=== PATIENT | female | born 1975 | race Caucasian/White ===

== ENCOUNTER 2017-12-09 20:21 | Emergency (ER) | payer BC ==
[~2017-12-09] VITALS: Ht 162.6 cm; Wt 62.0 kg
[2017-12-09] MEDS ORDERED: IOHEXOL 350 MG/ML 10 ML VIAL (for RAD DIAG) IVCONTRAST ONE (20:22)
[2017-12-09 20:24] VITALS: BP 119/69; PULSE 80; RESP 18; TEMP 99.2; O2SAT 96
[2017-12-09] MEDS ORDERED: THYR1TAB PO (21:23)
[2017-12-09 21:24] VITALS: BP 120/68; PULSE 80; RESP 18; TEMP 99.2; O2SAT 97
[2017-12-09] MEDS ORDERED: SODIUM CHLORIDE 0.9% FLUSH 10 ML FLUSH IV FLUSH PRN (21:45)
[2017-12-09 22:00] VITALS: O2SAT 99
[2017-12-09] MEDS ORDERED: ONDANSETRON HCL 4 MG/2 ML VIAL IV PUSH ONE (22:00)
[2017-12-09] MEDS ORDERED: MORPHINE SULFATE 2 MG/ML INJ IV PUSH ONE (22:00)
[2017-12-09] MEDS ORDERED: SODIUM CHLOR 0.9% 1000 ML INJ 1,000 ML IV ONE (22:00)
--- NOTE | 2017-12-09 22:10 | PD ---
HPI Chief Complaint: Flank/Kidney Pain Time Seen by Provider: 21:58 Travel History International Travel<30 days: No Contact w/Intl Traveler<30days: No Traveled to known affect area: No History of Present Illness HPI 42-year-old female patient presents to the ER today for 2 days history of right upper quadrant abdominal pains which she currently measures an 8 out of 10, nausea, worsened after she ate today. She denies any fevers, diarrhea, urinary symptoms, or any other symptoms. Modifying Factors: Worse with eating Associated Signs & Symptoms: Right upper quadrant abdominal pain with nausea Risk Factors: None PFSH Past Medical History Diminished Hearing: No Thyroid Disease: Yes Tetanus Vaccination: Unknown Influenza Vaccination: No ?: Not LMP: hyst Past Surgical History Hysterectomy: Yes Tonsillectomy: Yes Social History Alcohol Use: No Tobacco Use: No Substance Use: No Allergies-Medications (Allergen,Severity, Reaction): Coded Allergies: acetaminophen (Verified Allergy, Intermediate, Hallucinations, 12/09/17) propoxyphene (Verified Allergy, Intermediate, Hallucinations, 12/09/17) Reported Meds & Prescriptions Reported Meds & Active Scripts Active Reported Wp Thyroid (Thyroid) 81.25 Mg Tab 81.25 Mg PO DAILY Review of Systems Except as stated in HPI: all other systems reviewed are Neg Physical Exam Narrative GENERAL: Well-developed middle-age female patient currently in mild distress. Awake and oriented 3. SKIN: Focused skin assessment warm/dry. HEAD: Atraumatic. Normocephalic. EYES: Pupils equal and round. No scleral icterus. No injection or drainage. ENT: No nasal bleeding or discharge. Mucous membranes pink and moist. NECK: Trachea midline. No JVD. CARDIOVASCULAR: Regular rate and rhythm. No murmur appreciated. RESPIRATORY: No accessory muscle use. Clear to auscultation. Breath sounds equal bilaterally. GASTROINTESTINAL: Abdomen soft, Right upper quadrant tenderness without guarding or rebound, nondistended. Hepatic and splenic margins not palpable. MUSCULOSKELETAL: No obvious deformities. No clubbing. No cyanosis. No edema. NEUROLOGICAL: Awake and alert. No obvious cranial nerve deficits. Motor grossly within normal limits. Normal speech. PSYCHIATRIC: Appropriate mood and affect; insight and judgment normal. Data Data Last Documented VS Vital Signs Date Time Temp Pulse Resp B/P (MAP) Pulse Ox O2 Delivery O2 Flow Rate FiO2 12/09/17 22:30 76 18 109/65 (80) 98 Room Air 12/09/17 21:24 99.2 Orders Orders Complete Blood Count With Diff (12/09/17 21:33) Comprehensive Metabolic Panel (12/09/17 21:33) Lipase (12/09/17 21:33) Urinalysis - C+S If Indicated (12/09/17 21:33) Iv Access Insert/Monitor (12/09/17 21:33) Ecg Monitoring (12/09/17 21:33) Oximetry (12/09/17 21:33) Sodium Chloride 0.9% Flush (Ns Flush) (12/09/17 21:45) Ed Urine Pregnancytest Poc (12/09/17 21:33) Morphine Inj (Morphine Inj) (12/09/17 22:00) Ondansetron Inj (Zofran Inj) (12/09/17 22:00) Sodium Chlor 0.9% 1000 Ml Inj (Ns 1000 M (12/09/17 22:00) Ct Abd/Pel W Iv Contrast(Rout) (12/09/17 21:58) Labs Laboratory Tests Test 12/09/17 21:50 12/09/17 22:00 Urine Color YELLOW Urine Turbidity CLEAR Urine pH 7.0 Urine Specific Vivian 1.020 Urine Protein NEG mg/dL Urine Glucose (UA) NEG mg/dL Urine Ketones NEG mg/dL Urine Occult Blood NEG Urine Nitrite NEG Urine Bilirubin NEG Urine Leukocyte Esterase NEG Urine WBC 0-2 /hpf Urine Squamous Epithelial Cells 0-5 /hpf Urine Amorphous Sediment MOD Urine Bacteria RARE /hpf Urine Mucus MOD /lpf Microscopic Urinalysis Comment CULT NOT INDICATED White Blood Count 5.9 TH/MM3 Red Blood Count 4.58 MIL/MM3 Hemoglobin 13.6 GM/DL Hematocrit 40.7 % Mean Corpuscular Volume 88.8 FL Mean Corpuscular Hemoglobin 29.7 PG Mean Corpuscular Hemoglobin Concent 33.4 % Red Cell Distribution Width 12.7 % Platelet Count 219 TH/MM3 Mean Platelet Volume 8.3 FL Neutrophils (%) (Auto) 47.5 % Lymphocytes (%) (Auto) 40.0 % Monocytes (%) (Auto) 9.5 % Eosinophils (%) (Auto) 2.4 % Basophils (%) (Auto) 0.6 % Neutrophils # (Auto) 2.8 TH/MM3 Lymphocytes # (Auto) 2.4 TH/MM3 Monocytes # (Auto) 0.6 TH/MM3 Eosinophils # (Auto) 0.1 TH/MM3 Basophils # (Auto) 0.0 TH/MM3 CBC Comment DIFF FINAL Differential Comment Blood Urea Nitrogen 14 MG/DL Creatinine 0.76 MG/DL Random Glucose 97 MG/DL Total Protein 6.6 GM/DL Albumin 3.5 GM/DL Calcium Level 8.5 MG/DL Alkaline Phosphatase 96 U/L Aspartate Amino Transf (AST/SGOT) 18 U/L Alanine Aminotransferase (ALT/SGPT) 36 U/L Total Bilirubin 0.2 MG/DL Sodium Level 140 MEQ/L Potassium Level 3.7 MEQ/L Chloride Level 109 MEQ/L Carbon Dioxide Level 25.0 MEQ/L Anion Gap 6 MEQ/L Estimat Glomerular Filtration Rate 83 ML/MIN Lipase 153 U/L [facility] Medical Decision Making Medical Screen Exam Complete: Yes Emergency Medical Condition: Yes Medical Record Reviewed: Yes Interpretation(s) Laboratory Tests Test 12/09/17 21:50 12/09/17 22:00 Urine Bacteria RARE /hpf (NONE) Urine Mucus MOD /lpf (OCC) Monocytes (%) (Auto) 9.5 % (0.0-8.0) Chloride Level 109 MEQ/L (98-107) Estimat Glomerular Filtration Rate 83 ML/MIN (>89) Differential Diagnosis Right upper quadrant abdominal pains and nausea: Gastroenteritis versus pancreatitis versus cholecystitis Narrative Course Lab work appears unremarkable. Patient was given IV fluids, pain medication and nausea medications in the ER. CAT scan ordered for further evaluation. Physician Communication Physician Communication Case is signed out to Dr. Lopez at 9 PM pending CAT scan. Disposition based on CAT scan findings. Diagnosis Primary Impression: Abdominal pain Condition: Stable Clarisa Hoover MD Dec 09, 2017 22:10
[2017-12-09 22:12] LABS: BILIRUBIN, URINE NEG (NEG); BLOOD, URINE NEG (NEG); GLUCOSE,URINE NEG (NEG); KETONE, URINE NEG (NEG); NITRITE,URINE NEG (NEG); URINE LEUKOCYTE ESTERASE NEG (NEG)
[2017-12-09 22:13] LABS: AUTOMATED NEUTROPHIL # 2.8 TH/MM3 (1.8-7.7); BASOPHIL % 0.6 % (0.0-2.0); EOSINOPHIL # 0.1 TH/MM3 (0-0.4); EOSINOPHIL % 2.4 % (0.0-4.0); HEMATOCRIT 40.7 % (35.0-46.0); HEMOGLOBIN 13.6 GM/DL (11.6-15.3); LYMPHOCYTE # 2.4 TH/MM3 (1.0-4.8); MEAN CELL VOLUME 88.8 FL (80.0-100.0); MEAN CORPUSCULAR HEMOGLOBIN 29.7 PG (27.0-34.0); MEAN CORPUSCULAR HGB CONC 33.4 % (32.0-36.0); MEAN PLATELET VOLUME 8.3 FL (7.0-11.0); MONO % 9.5 % (0.0-8.0); MONOCYTE # 0.6 TH/MM3 (0-0.9); NEUT % 47.5 % (16.0-70.0); PLATELET COUNT 219 TH/MM3 (150-450); RED BLOOD COUNT 4.58 MIL/MM3 (4.00-5.30); RED CELL DISTRIBUTION WIDTH 12.7 % (11.6-17.2); WHITE BLOOD COUNT 5.9 TH/MM3 (4.0-11.0)
[2017-12-09 22:22] LABS: CHLORIDE 109 MEQ/L (98-107); SODIUM (NA) 140 MEQ/L (136-145)
[2017-12-09 22:26] LABS: ALBUMIN 3.5 GM/DL (3.4-5.0); CALCIUM 8.5 MG/DL (8.5-10.1); GLUCOSE,RANDOM 97 MG/DL (74-106)
[2017-12-09 22:27] LABS: BLOOD UREA NITROGEN 14 MG/DL (7-18)
[2017-12-09 22:28] LABS: URINE COLOR YELLOW (YELLW/STRAW)
[2017-12-09 22:29] LABS: AMORPHOUS SEDIMENT, URINE MOD; BACTERIA, URINE RARE /hpf; MUCUS URINE MOD /lpf (OCC); SQUAMOUS EPITHELIAL CELL URINE 0-5 /hpf (0-5); WBC, URINE 0-2 /hpf (0-5)
[2017-12-09 22:29] LABS: ALT (GPT) 36 U/L (10-53); AST (GOT) 18 U/L (15-37); CREATININE 0.76 MG/DL (0.50-1.00); GLOMERULAR FILTRATION RATE 83 ML/MIN (>89)
[2017-12-09 22:30] VITALS: BP 109/65; PULSE 76; RESP 18; O2SAT 98
[2017-12-09 22:31] LABS: TOTAL BILIRUBIN ADULT 0.2 MG/DL (0.2-1.0); TOTAL PROTEIN 6.6 GM/DL (6.4-8.2)
[2017-12-09 22:32] LABS: ALKALINE PHOSPHATASE 96 U/L (45-117)
--- NOTE | 2017-12-09 23:51 | RADRPT ---
EXAM DATE/TIME: 12/09/2017 23:23 [place] COMPARISON: No previous studies available for comparison. INDICATIONS : Right upper quadrant and right flank pain, nausea. IV CONTRAST: 90 cc Omnipaque 350 (iohexol) IV ORAL CONTRAST: No oral contrast ingested. RADIATION DOSE: 6.24 CTDIvol (mGy) MEDICAL HISTORY : None SURGICAL HISTORY : Hysterectomy. ENCOUNTER: Initial ACUITY: 1 day PAIN SCALE: 8/10 LOCATION: Right upper quadrant TECHNIQUE: Volumetric scanning of the abdomen and pelvis was performed. Using automated exposure control and ad justment of the mA and/or kV according to patient size, radiation dose was kept as low as reasonably achievable to obtain optimal diagnostic quality images. DICOM format image data is available electro nically for review and comparison. FINDINGS: LOWER LUNGS: The visualized lower lungs are clear. LIVER: Homogeneous density without appreciable solid lesion. 16mm cyst of the inferior tip of the liver. 8m m cyst left hepatic lobe. Slight fatty infiltration noted. There is no dilation of the biliary tree. No calcified gallstones. Gallbladder is contracted. No perceptible inflammatory changes. SPLEEN: Normal size without lesion. PANCREAS: Within normal limits. KIDNEYS: Normal in size and shape. There is no mass, stone or hydronephrosis. ADRENAL GLANDS: Within normal limits. VASCULAR: There is no aortic aneurysm. BOWEL/MESENTERY: The stomach, small bowel, and colon demonstrate no acute abnormality. There is no free intraperitone al air or fluid. The appendix is normal. ABDOMINAL WALL: Within normal limits. RETROPERITONEUM: There is no lymphadenopathy. BLADDER: No wall thickening or mass. REPRODUCTIVE: Within normal limits. INGUINAL: There is no lymphadenopathy or hernia. MUSCULOSKELETAL: No acute bony abnormality demonstrated. CONCLUSION: 1. No acute abnormality demonstrated. 2. Contracted gallbladder. 3. Fatty liver and with a couple small, benign-appearing cysts. 4. Normal appendix and kidneys. Sekou Robles MD on December 09, 2017 at 23:48 Board Certified Radiologist. This report was verified electronically.
[2017-12-10] MEDS ORDERED: ONDANSETRON HCL 4 MG/2 ML VIAL IV ONE
[2017-12-10] MEDS ORDERED: MORPHINE SULFATE 2 MG/ML INJ IV PUSH ONE
[2017-12-10 00:07] VITALS: BP 124/67; PULSE 74; RESP 18; O2SAT 98
--- NOTE | 2017-12-10 00:11 | PD ---
Physical Exam Time Seen by Provider: 00:[address] Hwang left this patient with me to check the CT scan and, if normal, discharge. Data Data Last Documented VS Vital Signs Date Time Temp Pulse Resp B/P (MAP) Pulse Ox O2 Delivery O2 Flow Rate FiO2 12/09/17 22:30 76 18 109/65 (80) 98 Room Air 12/09/17 21:24 99.2 Orders Orders Complete Blood Count With Diff (12/09/17 21:33) Comprehensive Metabolic Panel (12/09/17 21:33) Lipase (12/09/17 21:33) Urinalysis - C+S If Indicated (12/09/17 21:33) Iv Access Insert/Monitor (12/09/17 21:33) Ecg Monitoring (12/09/17 21:33) Oximetry (12/09/17 21:33) Sodium Chloride 0.9% Flush (Ns Flush) (12/09/17 21:45) Ed Urine Pregnancytest Poc (12/09/17 21:33) Morphine Inj (Morphine Inj) (12/09/17 22:00) Ondansetron Inj (Zofran Inj) (12/09/17 22:00) Sodium Chlor 0.9% 1000 Ml Inj (Ns 1000 M (12/09/17 22:00) Ct Abd/Pel W Iv Contrast(Rout) (12/09/17 21:58) Iohexol 350 Inj (Omnipaque 350 Inj) (12/09/17 20:22) Ondansetron Inj (Zofran Inj) (12/10/17 00:00) Morphine Inj (Morphine Inj) (12/10/17 00:00) Labs Laboratory Tests Test 12/09/17 21:50 12/09/17 22:00 Urine Color YELLOW Urine Turbidity CLEAR Urine pH 7.0 Urine Specific [place] 1.020 Urine Protein NEG mg/dL Urine Glucose (UA) NEG mg/dL Urine Ketones NEG mg/dL Urine Occult Blood NEG Urine Nitrite NEG Urine Bilirubin NEG Urine Leukocyte Esterase NEG Urine WBC 0-2 /hpf Urine Squamous Epithelial Cells 0-5 /hpf Urine Amorphous Sediment MOD Urine Bacteria RARE /hpf Urine Mucus MOD /lpf Microscopic Urinalysis Comment CULT NOT INDICATED White Blood Count 5.9 TH/MM3 Red Blood Count 4.58 MIL/MM3 Hemoglobin 13.6 GM/DL Hematocrit 40.7 % Mean Corpuscular Volume 88.8 FL Mean Corpuscular Hemoglobin 29.7 PG Mean Corpuscular Hemoglobin Concent 33.4 % Red Cell Distribution Width 12.7 % Platelet Count 219 TH/MM3 Mean Platelet Volume 8.3 FL Neutrophils (%) (Auto) 47.5 % Lymphocytes (%) (Auto) 40.0 % Monocytes (%) (Auto) 9.5 % Eosinophils (%) (Auto) 2.4 % Basophils (%) (Auto) 0.6 % Neutrophils # (Auto) 2.8 TH/MM3 Lymphocytes # (Auto) 2.4 TH/MM3 Monocytes # (Auto) 0.6 TH/MM3 Eosinophils # (Auto) 0.1 TH/MM3 Basophils # (Auto) 0.0 TH/MM3 CBC Comment DIFF FINAL Differential Comment Blood Urea Nitrogen 14 MG/DL Creatinine 0.76 MG/DL Random Glucose 97 MG/DL Total Protein 6.6 GM/DL Albumin 3.5 GM/DL Calcium Level 8.5 MG/DL Alkaline Phosphatase 96 U/L Aspartate Amino Transf (AST/SGOT) 18 U/L Alanine Aminotransferase (ALT/SGPT) 36 U/L Total Bilirubin 0.2 MG/DL Sodium Level 140 MEQ/L Potassium Level 3.7 MEQ/L Chloride Level 109 MEQ/L Carbon Dioxide Level 25.0 MEQ/L Anion Gap 6 MEQ/L Estimat Glomerular Filtration Rate 83 ML/MIN Lipase 153 U/L [facility] Medical Record Reviewed: Yes Supervised Visit with ERVIN: No Interpretation(s) The CBC is normal. The complete metabolic profile shows a GFR of 83 but is otherwise normal. The lipase is normal. The urinalysis is normal except for rare bacteria and culture is not indicated. The CT abdomen pelvis shows a normal appendix and contracted gallbladder and shows no evidence for the cause of her pain. It is a normal CT abdomen/pelvis. Differential Diagnosis Cholelithiasis with colic, pyelonephritis, ulcer pain, colitis, abdominal pain of unknown etiology Narrative Course The patient has abdominal pain of unknown etiology. She has pain in the area of the gallbladder but I can find no imaging or laboratory results to support a cause of the gallbladder for her pain. Plan: The patient should follow-up with her primary care physician in [facility] and she should seek gastroenterology consultation if her pain is persistent. The patient will be getting prescription for Compazine, she already has adequate pain medications at home. Diagnosis Primary Impression: Abdominal pain of unknown etiology Additional Instruction: As we discussed, if this pain is persistent you should follow-up with gastroenterology. Med/Other Pt SpecificInfo: Prescription(s) given Disposition: 01 DISCHARGE HOME Condition: Stable Emery Lopez MD Dec 10, 2017 00:11
[2017-12-10] MEDS ORDERED: PROC10TA PO (00:12)
== END 2017-12-10 00:21 | disposition home or self-care (01) ==
LOC: PHED 20:21
DX: R10.11 Right upper quadrant pain (principal)
CPT/HCPCS: 74177; 80053; 81001; 83690; 84703; 85025; 96361; 96374; 96375; 96376; 99284; J2270; J2405; J7030; Q9967